=== PATIENT | male | born 1960 | race Caucasian/White ===

== ENCOUNTER 2019-11-30 14:27 | Emergency (ER) | payer BC, SELFPAY ==
--- NOTE | ~2019-11-30 | US_ITS ---
US scrotum doppler INDICATION: Left testicular swelling and pain TECHNIQUE: Testicular sonogram utilizing grayscale and color Doppler FINDINGS: The testes are normal in size and appearance. No focal lesions are seen. The right testes measures 4.3 x 2.9 x 2.3 cm centimeters, and the left testis measures 4.4 x 2.6 x 3.2 cm cm. The left epididymis appears enlarged with increased vascularity. There is overlying skin thickening. There is a complex left hydrocele. No right hydrocele or varicocele. IMPRESSION: 1. Enlarged heterogeneous left epididymis with increased vascularity and overlying skin thickening, compatible with epididymitis. Complex left hydrocele. Reviewed, dictated and finalized at location [facility] IMPRESSION: 1. Enlarged heterogeneous left epididymis with increased vascularity and overl mino skin thickening, compatible with epididymitis. Complex left hydrocele.
[2019-11-30 14:45] VITALS: BP 155/94; PULSE 93; RESP 16; TEMP 37.2; O2SAT 99
--- NOTE | 2019-11-30 16:25 | ED.MALEGU ---
HPI - Male Genitourinary General Chief complaint: Urogenital-Male Stated complaint: my nut is the size of a baseball Time Seen by Provider: 11/30/19 15:30 Source: patient and RN notes reviewed Mode of arrival: ambulatory Limitations: no limitations History of Present Illness HPI Narrative: Pt is a 59 y/o male who presents to the ED with c/o lt testicular pain and swelling starting several weeks ago. He notes that his symptoms worsened this morning. Pt states that his pain radiates into his lt groin. He describes his pain as dull, but notes that movement causes him to have sharp pain. Pt currently rates his pain at 8/10. He reports associated dysuria, but denies any fever, vomiting, CP, or SOB. Pt states that he has no Hx of DM. MD Complaint: testicle pain and testicle swelling Onset (ago): week(s) (several) Duration: other (worsened this morning) Location: left testicle Radiation: left inguinal region Severity scale (1-10): 8 Quality: sharp and dull Exacerbating factors: movement Associated symptoms: Reports dysuria Related Data Allergies Allergy/AdvReac Type Severity Reaction Status Date / Time No Known Allergies Allergy Verified 11/30/19 16:48 Review of Systems Review of Systems: All systems reviewed & are unremarkable except as noted in HPI and below Constitutional: Constitutional: Denies chills, Denies fever(s), Denies headache(s) and Denies weakness Cardiovascular: Cardiovascular: Denies chest pain and Denies dyspnea Respiratory: Respiratory: Denies cough and Denies dyspnea Gastrointestinal: Gastrointestinal: Denies abdominal pain, Denies diarrhea, Denies nausea and Denies vomiting Genitourinary: Genitourinary: Reports dysuria, Reports scrotal swelling (swelling in lt testicle) and Reports testicular pain (lt testicle pain radiating into lt groin) [facility] Past Medical History Medical History Healthy adult male Surgical History Surgical History No significant past surgical history Social History Social History Gender identity (if verbalized by the patient): Male Exam Const: General: no acute distress and well developed Orientation/consciousness: oriented to person, oriented to place, oriented to time and patient oriented x3 HENMT: Head: normocephalic Resp: Effort & Inspection: normal respiratory effort Auscultation: clear to auscultation bilaterally Cardio: Rate: regular rate Rhythm: regular rhythm GI: GI Palp: No abdominal tenderness and Yes Soft to palpation : Scrotum: scrotal swelling on the left and other (tenderness over lt scrotum) Skin: General skin exam: normal color and turgor normal Neuro: General: oriented to person, oriented to place, oriented to time and patient oriented x3 Cognition (Neuro): normal cognition Extrem: General: normal to inspection, full ROM and no pedal edema Psych: Appearance: grossly normal Mental Status: mental status grossly normal Affect: normal affect Course Reevaluation(s) Reevaluation #1: Discussed with pt about labs and US. I offered admission for IV antibiotics. He declined due to him wanting to be discharged. Date: 11/30/19 Time: 17:55 Vital Signs Vital signs: Vital Signs Temperature 37.2 C 11/30/19 14:45 Pulse Rate 93 11/30/19 14:45 Respiratory Rate 16 11/30/19 14:45 Blood Pressure 155/94 H 11/30/19 14:45 Pulse Oximetry 99 11/30/19 14:45 Temperature 37.2 C 11/30/19 14:45 Pulse Rate 93 11/30/19 14:45 Respiratory Rate 16 11/30/19 14:45 Blood Pressure 155/94 H 11/30/19 14:45 Pulse Oximetry 99 11/30/19 14:45 MDM - Male Genitourinary Lab Data Result diagrams: 11/30/19 17:18 11/30/19 17:18 Labs: Lab Results 11/30/19 11/30/19 11/30/19 Range/Units 17:18 17:18 17:18 WBC 15.4 H (4.5-10.0) K/mm3 RBC 4.75 (4.6-6.20) M/mm3 Hgb 15.2 (14.0-18.0) g/dL Hct 43.6
[2019-11-30] MEDS: KETOROLAC 30 MG/ML VIAL (*BKC) IV PUSH (16:52)
[2019-11-30 17:23] LABS: Basophils Absolute Auto 0.1 K/mm3 (0.0-0.1); Basophils Percent Auto 0.4 % (0.2-1.2); Eosinophils Percent Auto 0.3 % (0-4.4); Hematocrit 43.6 % (42.0-52.0); Hemoglobin 15.2 g/dL (14.0-18.0); Immature Granulocyte Absolute 0.07 K/mm3 (0.00-0.031); Immature Granulocyte Percent A 0.5 % (0-0.5); Lymphocytes Absolute Auto 1.98 K/mm3 (0.9-3.2); Lymphocytes Percent Auto 12.8 % (18.3-44.2); Mean Corpuscular HGB Conc 34.9 g/dl (32-36); Mean Corpuscular Volume 91.8 fl (80-100); Mean Platelet Volume 8.8 fl (7.4-10.4); Monocytes Absolute Auto 1.1 K/mm3 (0.1-0.6); Monocytes Percent Auto 7.3 % (2.6-8.5); Neutrophils Absolute Auto 12.2 K/mm3 (1.3-6.7); Neutrophils Percent Auto 78.7 % (45.5-73.1); Platelet Count Result 344 k/mm3 (150-375); Red Blood Count 4.75 M/mm3 (4.6-6.20); Red Cell Distribution Width 12.8 % (11.5-14.5); White Blood Count 15.4 K/mm3 (4.5-10.0)
[2019-11-30 17:32] LABS: Add Urine Microscopic? YES; Appearance Urine Cloudy (Clear); Bilirubin Urine Negative (Negative); Blood Urine 3+ (Negative); Color Urine Yellow (Yellow); Glucose Urine UA Negative (Negative); Ketones Urine Negative (Negative); Leukocyte Esterase Ur 2+ LEU/UL (Negative); Mucus Urine Rare /lpf; Nitrate Urine Negative (Negative); Protein Urine 2+ mg/dL (Negative); RBC Urine >75 /hpf (0-2); Specific Grav Ur 1.021 (1.001-1.035); WBC Urine >75 /hpf
[2019-11-30 17:36] LABS: Blood Urea Nitrogen 9 mg/dL (9-20); Carbon Dioxide 23 mmol/L (22-30); Chloride 97 mmol/L (98-107); Estimated CRCL calculation 111 ml/min; Estimated Glomerular Filt Rate > 60; Glucose 113 mg/dL (75-110); Potassium 3.6 mmol/L (3.4-5.0); Sodium 133 mmol/L (137-145)
[2019-11-30 17:45] LABS: NT Pro B Type Natriuretic Pept 151 PG/ML (5-100)
[2019-11-30 18:25] VITALS: BP 128/76; PULSE 90; RESP 16; O2SAT 98
== END 2019-11-30 18:25 | disposition home or self-care (01) ==
PROVIDERS: Emergency Provider Emergency Medicine
DX: N39.0 Urinary tract infection, site not specified (principal); N45.1 Epididymitis
CPT/HCPCS: 36415; 76870; 80048; 81001; 83880; 85025; 87086; 93976; 96365; 96375; 99284; J0696; J1885